=== PATIENT | female | born 2000 | race Caucasian/White ===

== ENCOUNTER 2024-06-28 13:47 | Emergency (ER) | payer MEDICAID, SELFPAY ==
[2024-06-28 14:07] VITALS: BP 129/90; PULSE 97; RESP 16; TEMP 36.7; O2SAT 100
--- NOTE | 2024-06-28 14:28 | ED.URI ---
HPI - URI/Sore Throat General Chief Complaint: Upper Respiratory Infection Stated Complaint: congestion,lt ear pain Time Seen by Provider: 06/28/24 14:28 Source: patient Mode of arrival: ambulatory Limitations: no limitations History of Present Illness HPI Narrative: 24-year-old female presents with complaint of congestion since yesterday. Patient states she woke up with redness and drainage from left eye. Complaining of left ear pain and pressure starting today. Afebrile. Taking [id number] Sudafed to treat congestion. All systems reviewed and negative except as noted above. Related Data Allergies Allergy/AdvReac Type Severity Reaction Status Date / Time No Known Allergies Allergy Verified 06/28/24 14:03 Review of Systems Review of Systems: CONSTITUTIONAL: Denies fever, chills, or sweats. Reports fatigue. EYES: Denies visual changes. Reports redness and discharge from left eye. ENT: Reports rhinorrhea, congestion. Denies sore throat reports left ear pain. CARDIOVASCULAR: Denies chest pain, palpitations, or edema. RESPIRATORY: Denies cough or dyspnea. GASTROINTESTINAL: Denies abdominal pain, nausea, vomiting, or diarrhea. GENITOURINARY: Denies dysuria or hematuria. SKIN: Denies rash or itching. MUSCULOSKELETAL: Denies back pain, joint pain, or myalgia. NEUROLOGIC: Denies headache, numbness, or weakness. PSYCHIATRIC: Denies anxiety or depression. All other systems reviewed are negative, except as documented in HPI. PMFSH Comments At time of signature, agree with nursing past medical, surgical, social and family history. There is no relevant family history pertinent to the presenting complaint. Exam Narrative: GENERAL: This is a well-nourished, well-developed patient, in no apparent distress. HEAD: normocephalic, atraumatic. EYES: PERRL. Sclera and conjunctiva erythematous to left eye with purulent drainage. Right eye is normal. EARS: External ears normal, auditory canals clear and without drainage, right TM normal. Left TM is erythematous and retracted. No perforation bilaterally. NOSE: External nose normal with moderate congestion, clear nasal drainage, erythema and swelling to bilateral nares THROAT: Mucous membranes moist, posterior pharynx clear. NECK: Neck supple, non-tender without lymphadenopathy, masses or thyromegaly. CARDIOVASCULAR: Regular rate and rhythm without murmurs, gallops, or rubs. RESPIRATORY: Clear to auscultation. Breath sounds equal bilaterally. No wheezes, rales, or rhonchi. SKIN: warm, Dry, intact with no suspicious lesions or rash, good texture and turgor. NEURO: awake, alert, and oriented to person, place and time. There were no obvious focal neurologic abnormalities. EXTREMITIES: No joint tenderness, effusion, or edema noted. Course Course Level of Care: Express Care Visit Vital Signs Vital signs: Vital Signs Temperature 36.7 C 06/28/24 14:07 Pulse Rate 97 06/28/24 14:07 Respiratory Rate 16 06/28/24 14:07 Blood Pressure 129/90 06/28/24 14:07 Pulse Oximetry 100 06/28/24 14:07 Oxygen Delivery Room Air 06/28/24 14:07 Temperature 36.7 C 06/28/24 14:07 Pulse Rate 97 06/28/24 14:07 Respiratory Rate 16 06/28/24 14:07 Blood Pressure 129/90 06/28/24 14:07 Pulse Oximetry 100 06/28/24 14:07 Oxygen Delivery Room Air 06/28/24 14:07 Reviewed MDM - URI/Sore Throat MDM Narrative Medical decision making narrative: Patient is aware of diagnosis, understands and agrees to treatment plan. Anticipatory guidance given. Patient agrees to follow-up as directed and is aware of reasons to seek care at the emergency department. Portions of this record may have been created with voice recognition software Discharge Plan Discharge Clinical Impression: Acute viral sinusitis, Acute left otitis media, Acute bacterial conjunctivitis of left eye Patient Disposition: Home, Self-Care Condition: Stable Instructions: Antibiotic Form, Ear Infection (ED), Conjunctivitis (ED) Additional Instructions: Take antibiotic as prescribed until gone. Continue taking [id number] Sudafed as directed on packaging. Drink at least 64 oz of water a day. Place antibiotic eyedrops as prescribed. Wash hands before and after placing eyedrops. Follow-up with your primary care physician if symptoms are not improving. Patient Language: Japanese Prescriptions: New amoxicillin 875 mg tablet 875 mg PO Q12H 10 Days Qty: 20 0RF polymyxin B sulf-trimethoprim 10,000 unit- 1 mg/mL drops 1 drp LEFT EYE Q3H 7 Days Qty: 10 0RF Rx Instructions: while awake; do not exceed 6 doses in 24 hours fluticasone propionate [Flonase Allergy Relief] 50 mcg/actuation spray,suspension 1 spray intranasal BID Qty: 16 0RF Rx Instructions: administer into each nostril Follow-up/Referrals: UNKNOWN,DOCTOR [Primary Care Provider] - Time of Disposition: 14:32
== END 2024-06-28 14:43 | disposition home or self-care (01) ==
PROVIDERS: Emergency Provider Nurse Practitioner Family
DX: J01.80 Other acute sinusitis (principal); B97.89 Other viral agents as the cause of diseases classified elsewhere; H66.92 Otitis media, unspecified, left ear; H10.32 Unspecified acute conjunctivitis, left eye
CPT/HCPCS: 99203; G0463